=== PATIENT | male | born 1960 | race African-American/Black ===

== ENCOUNTER 2016-07-29 14:48 | Inpatient (IN) | payer OTHER, MEDICAID ==
[~2016-07-29] VITALS: Ht 182.9 cm; Wt 97.5 kg
[~2016-07-29 14:48] MED LIST: AMLO-512 PO; PALI3 PO
[2016-07-29] MEDS ORDERED: FLUP10 PO (15:03)
[2016-07-29 15:37] LABS: BASOPHILS % (AUTO) 0.4 % (0.0-2.0); EOSINOPHILS % (AUTO) 3.6 % (1.0-6.0); HEMATOCRIT 38.2 % (41-53); HEMOGLOBIN 12.3 g/dL (13.5-17.5); LYMPHOCYTES # (AUTO) 0.9 K/uL (1.0-4.8); LYMPHOCYTES % (AUTO) 18.7 % (22.0-44.0); MEAN CORPUSCULAR HEMOGLOBIN 27.6 pg (26.0-34.0); MEAN CORPUSCULAR HGB CONC 32.3 G/dL (31.0-37.0); MEAN CORPUSCULAR VOLUME 85 fL (80-100); MONOCYTES # (AUTO) 0.4 K/uL (0.1-1.0); MONOCYTES % (AUTO) 8.5 % (2.0-9.0); NEUTROPHILS # (AUTO) 3.4 K/uL (1.8-7.7); NEUTROPHILS % (AUTO) 68.8 % (40.0-70.0); PLATELET COUNT (AUTO) 296 K/uL (150-450); RED BLOOD CELL COUNT(AUTO) 4.47 MIL/uL (4.50-5.90); RED CELL DISTRIBUTION WIDTH 14.5 % (11.5-14.5)
[2016-07-29] MEDS ORDERED: DiphenhydrAMINE HCL 50 MG/ML VIAL IM ONE (15:45)
[2016-07-29] MEDS ORDERED: LORazepam 2 MG/ML VIAL IM ONE (15:45)
[2016-07-29] MEDS ORDERED: HALOPERIDOL LACTATE 5 MG/ML VIAL IM ONE (15:45)
[2016-07-29 15:48] LABS: ANION GAP 12 mmol/L (8-16); CALCIUM, TOTAL 8.9 mg/dL (8.8-10.5); CARBON DIOXIDE 28 mmol/L (22-29); CHLORIDE 106 mmol/L (98-107); CREATININE 1.19 mg/dL (0.60-1.30); GLOMERULAR FILTR. RATE CALC > 60 mL/min (>60); POTASSIUM 3.2 mmol/L (3.5-5.1); SODIUM SERUM 146 mmol/L (136-145); UREA NITROGEN, BLOOD 14 mg/dL (7-18)
[2016-07-29 15:54] LABS: ALANINE AMINOTRANSFERASE 27 U/L (12-78); ALBUMIN 3.7 g/dL (3.4-5.0); ASPARTATE AMINOTRANSFERASE 26 U/L (15-37); BILIRUBIN,TOTAL 0.4 mg/dL (0.1-1.0); TOTAL PROTEIN, SERUM 7.1 g/dL (6.4-8.2)
[2016-07-29] MEDS ORDERED: HALOPERIDOL 5 MG TABLET PO PRN (16:30)
[2016-07-29] MEDS ORDERED: ZOLPIDEM TARTRATE 10 MG TABLET PO PRN (16:30)
[2016-07-29] MEDS ORDERED: POTASSIUM CHLORIDE 20 MEQ ER TABLET PO ONE (20:15)
[2016-07-30] MEDS: PALIPERIDONE 3 MG ER TABLET PO SCH ×2 (08:14→21:00)
[2016-07-30] MEDS: AmLODIPine BESYLATE 10 MG TABLET PO SCH (08:15)
[2016-07-31] MEDS: PALIPERIDONE 3 MG ER TABLET PO SCH ×2 (08:03→20:28)
[2016-07-31] MEDS: AmLODIPine BESYLATE 10 MG TABLET PO SCH (08:04)
[2016-08-01] MEDS: AmLODIPine BESYLATE 10 MG TABLET PO SCH (08:21)
[2016-08-01] MEDS: PALIPERIDONE 3 MG ER TABLET PO SCH ×2 (08:21→20:26)
[2016-08-02] MEDS: AmLODIPine BESYLATE 10 MG TABLET PO SCH (09:00)
[2016-08-02] MEDS: PALIPERIDONE 3 MG ER TABLET PO SCH ×2 (09:00→20:43)
[2016-08-03] MEDS: PALIPERIDONE 3 MG ER TABLET PO SCH ×2 (08:03→20:45)
[2016-08-03] MEDS: AmLODIPine BESYLATE 10 MG TABLET PO SCH (08:03)
[2016-08-04] MEDS: PALIPERIDONE 3 MG ER TABLET PO SCH ×2 (08:33→20:18)
[2016-08-04] MEDS: AmLODIPine BESYLATE 10 MG TABLET PO SCH (08:53)
[2016-08-04] MEDS ORDERED: HALOPERIDOL LACTATE 5 MG/ML VIAL ONE (09:35)
[2016-08-04] MEDS: HALOPERIDOL LACTATE 5 MG/ML VIAL IM PRN ×2 (09:43→20:18)
[2016-08-05] MEDS: AmLODIPine BESYLATE 10 MG TABLET PO SCH (08:59)
[2016-08-05] MEDS: PALIPERIDONE 3 MG ER TABLET PO SCH ×2 (08:59→20:46)
[2016-08-05] MEDS: HALOPERIDOL LACTATE 5 MG/ML VIAL IM PRN ×2 (09:00→21:02)
[2016-08-06 06:30] VITALS: BP 144/93
[2016-08-06] MEDS: PALIPERIDONE 3 MG ER TABLET PO SCH ×2 (09:00→20:50)
[2016-08-06] MEDS: AmLODIPine BESYLATE 10 MG TABLET PO SCH (09:00)
[2016-08-06] MEDS: HALOPERIDOL LACTATE 5 MG/ML VIAL IM PRN (09:15)
[2016-08-06 16:00] VITALS: BP 153/89
[2016-08-07] MEDS: PALIPERIDONE 3 MG ER TABLET PO SCH ×2 (09:09→20:12)
[2016-08-07] MEDS: AmLODIPine BESYLATE 10 MG TABLET PO SCH (09:09)
[2016-08-07 16:00] VITALS: BP 114/64
[2016-08-08] MEDS: AmLODIPine BESYLATE 10 MG TABLET PO SCH (08:28)
[2016-08-08] MEDS: PALIPERIDONE 3 MG ER TABLET PO SCH ×2 (08:29→20:13)
[2016-08-09 08:34] VITALS: BP 129/67
[2016-08-09] MEDS: PALIPERIDONE 3 MG ER TABLET PO SCH (09:01)
[2016-08-09] MEDS: AmLODIPine BESYLATE 10 MG TABLET PO SCH (09:01)
[2016-08-09 16:00] VITALS: BP 118/68
[2016-08-09] MEDS: PALIPERIDONE 6 MG ER TABLET PO SCH (20:39)
[2016-08-10 07:05] VITALS: BP 121/75
[2016-08-10 08:50] VITALS: BP 117/64
[2016-08-10] MEDS: AmLODIPine BESYLATE 10 MG TABLET PO SCH (09:21)
[2016-08-10] MEDS: PALIPERIDONE 6 MG ER TABLET PO SCH ×2 (09:21→20:32)
[2016-08-10 16:06] VITALS: BP 119/69
[2016-08-10] MEDS: LORazepam 2 MG TABLET PO PRN (20:32)
[2016-08-11 06:45] VITALS: BP 136/83
[2016-08-11 08:00] VITALS: BP 115/69
[2016-08-11] MEDS: PALIPERIDONE 6 MG ER TABLET PO SCH ×2 (08:40→20:31)
[2016-08-11] MEDS: AmLODIPine BESYLATE 10 MG TABLET PO SCH (08:40)
[2016-08-11 16:05] VITALS: BP 127/71
[2016-08-11] MEDS: LORazepam 2 MG TABLET PO PRN (20:31)
[2016-08-12 06:54] VITALS: BP 124/78
[2016-08-12 08:24] VITALS: BP 122/67
[2016-08-12] MEDS: AmLODIPine BESYLATE 10 MG TABLET PO SCH (08:27)
[2016-08-12] MEDS: PALIPERIDONE 6 MG ER TABLET PO SCH ×2 (08:28→21:10)
[2016-08-12] MEDS: LORazepam 2 MG TABLET PO PRN (08:28)
[2016-08-13 05:09] VITALS: BP 123/79
[2016-08-13 08:28] VITALS: BP 123/67
[2016-08-13] MEDS: PALIPERIDONE 6 MG ER TABLET PO SCH ×2 (09:27→20:57)
[2016-08-13] MEDS: AmLODIPine BESYLATE 10 MG TABLET PO SCH (09:27)
[2016-08-13 16:00] VITALS: BP 128/69
[2016-08-14 08:25] VITALS: BP 113/64
[2016-08-14] MEDS: AmLODIPine BESYLATE 10 MG TABLET PO SCH (09:16)
[2016-08-14] MEDS: PALIPERIDONE 6 MG ER TABLET PO SCH ×2 (09:16→20:19)
[2016-08-14 16:00] VITALS: BP 120/70
[2016-08-14] MEDS: LORazepam 2 MG TABLET PO PRN (20:19)
[2016-08-15 06:15] VITALS: BP 140/97
[2016-08-15] MEDS: PALIPERIDONE 6 MG ER TABLET PO SCH ×2 (09:18→20:55)
[2016-08-15] MEDS: AmLODIPine BESYLATE 10 MG TABLET PO SCH (09:19)
[2016-08-15] MEDS: LORazepam 2 MG TABLET PO PRN (09:19)
[2016-08-15] MEDS ORDERED: PALIPERIDONE PALMITATE 234 MG/1.5 ML SYRINGE IM ONE (16:00)
[2016-08-15 16:10] VITALS: BP 130/79
[2016-08-16] MEDS: AmLODIPine BESYLATE 10 MG TABLET PO SCH (08:19)
[2016-08-16] MEDS: PALIPERIDONE 6 MG ER TABLET PO SCH (08:20)
[2016-08-16 16:05] VITALS: BP 134/76
[2016-08-16] MEDS ORDERED: AMLO-512 PO (16:54)
[2016-08-16] MEDS ORDERED: PALI234D IM (16:54)
[2016-08-16] MEDS ORDERED: PALI6 PO (16:54)
[2016-08-20] MEDS ORDERED: PALIPERIDONE PALMITATE 156 MG/ML SYRINGE IM ONE (09:00)
[2016-09-17] MEDS ORDERED: PALIPERIDONE PALMITATE 234 MG/1.5 ML SYRINGE IM SCH (09:00)
== END 2016-08-16 20:30 | disposition home or self-care (01) | DRG 885 ==
LOC: EMS 14:50 → B3A 16:19
DX: F20.0 Paranoid schizophrenia (principal); E87.1 Hypo-osmolality and hyponatremia; F17.210 Nicotine dependence, cigarettes, uncomplicated; E66.9 Obesity, unspecified; F99 Mental disorder, not otherwise specified; D64.9 Anemia, unspecified; E87.6 Hypokalemia; I10 Essential (primary) hypertension; Z78.1 Physical restraint status; Z88.8 Allergy status to other drugs, medicaments and biological substances; Z68.29 Body mass index [BMI] 29.0-29.9, adult; Z71.6 Tobacco abuse counseling
CPT/HCPCS: 96372; 99285; G0480; J1200; J1630; J2060

== ENCOUNTER 2017-03-31 10:22 | Inpatient (IN) | payer MEDICARE, MEDICAID ==
[~2017-03-31] VITALS: Ht 185.4 cm; Wt 81.8 kg
[~2017-03-31 10:22] MED LIST changes: +PALI234D IM; -PALI3 PO; +PALI6 PO
[2017-03-31 11:10] LABS: BASOPHILS # (AUTO) 0.02 K/uL (0.00-0.20); BASOPHILS % (AUTO) 0.3 % (0.0-2.0); EOSINOPHILS # (AUTO) 0.14 K/uL (0.00-0.70); EOSINOPHILS % (AUTO) 2.58 % (1.0-6.0); HEMATOCRIT 37.4 % (41-53); HEMOGLOBIN 12.2 g/dL (13.5-17.5); LYMPHOCYTES # (AUTO) 1.3 K/uL (1.0-4.8); LYMPHOCYTES % (AUTO) 23.9 % (22.0-44.0); MEAN CORPUSCULAR HEMOGLOBIN 28.1 pg (26.0-34.0); MEAN CORPUSCULAR HGB CONC 32.5 G/dL (31.0-37.0); MEAN CORPUSCULAR VOLUME 87 fL (80-100); MONOCYTES # (AUTO) 0.4 K/uL (0.1-1.0); MONOCYTES % (AUTO) 7.9 % (2.0-9.0); NEUTROPHILS # (AUTO) 3.5 K/uL (1.8-7.7); NEUTROPHILS % (AUTO) 65.3 % (40.0-70.0); RED BLOOD CELL COUNT(AUTO) 4.33 MIL/uL (4.50-5.90)
[2017-03-31 11:23] LABS: WHITE BLOOD COUNT (AUTO) 6.2 K/uL (4.5-11.0)
[2017-03-31 11:24] LABS: ANION GAP 13 mmol/L (8-16); CALCIUM, TOTAL 8.7 mg/dL (8.8-10.5); CARBON DIOXIDE 24 mmol/L (22-29); CHLORIDE 100 mmol/L (98-107); CREATININE 1.23 mg/dL (0.60-1.30); GLOMERULAR FILTR. RATE CALC > 60 mL/min (>60); POTASSIUM 3.1 mmol/L (3.5-5.1); SODIUM SERUM 137 mmol/L (136-145); UREA NITROGEN, BLOOD 9 mg/dL (7-18)
[2017-03-31 11:30] LABS: ALANINE AMINOTRANSFERASE 23 U/L (12-78); ALBUMIN 3.9 g/dL (3.4-5.0); ASPARTATE AMINOTRANSFERASE 24 U/L (15-37); BILIRUBIN,TOTAL 0.5 mg/dL (0.1-1.0); TOTAL PROTEIN, SERUM 7.1 g/dL (6.4-8.2)
[2017-03-31] MEDS ORDERED: HALOPERIDOL LACTATE 5 MG/ML VIAL IM ONE (11:30)
[2017-03-31] MEDS ORDERED: BENZTROPINE MESYLATE 1 MG/ML 2 ML VIAL IM ONE (11:30)
[2017-03-31] MEDS ORDERED: LORazepam 2 MG/ML VIAL IM ONE (11:30)
[2017-03-31 11:56] LABS: PLATELET COUNT (AUTO) 209 K/uL (150-450)
[2017-03-31] MEDS ORDERED: HALOPERIDOL 5 MG TABLET PO PRN (12:00)
[2017-03-31] MEDS ORDERED: POTASSIUM CHLORIDE 20 MEQ ER TABLET PO ONE ×2 (12:45→19:15)
[2017-03-31 16:34] VITALS: BP 135/89
[2017-03-31 16:35] VITALS: BP 135/89
[2017-03-31] MEDS: PALIPERIDONE 3 MG ER TABLET PO SCH (20:30)
[2017-04-01 06:00] VITALS: BP 127/71
[2017-04-01] MEDS: PALIPERIDONE 3 MG ER TABLET PO SCH ×2 (08:19→20:19)
[2017-04-01] MEDS ORDERED: IBUPROFEN 400 MG TABLET PO PRN (21:30)
[2017-04-01] MEDS ORDERED: ACETAMINOPHEN 325 MG TABLET PO PRN (21:30)
[2017-04-02] MEDS: PALIPERIDONE 3 MG ER TABLET PO SCH ×2 (08:43→20:54)
[2017-04-02] MEDS: AmLODIPine BESYLATE 10 MG TABLET PO SCH (08:43)
[2017-04-02] MEDS: ZOLPIDEM TARTRATE 10 MG TABLET PO PRN (20:54)
[2017-04-03] MEDS: AmLODIPine BESYLATE 10 MG TABLET PO SCH (08:57)
[2017-04-03] MEDS: PALIPERIDONE 3 MG ER TABLET PO SCH ×2 (08:57→21:00)
[2017-04-04] MEDS: PALIPERIDONE 3 MG ER TABLET PO SCH ×2 (08:28→20:31)
[2017-04-04] MEDS: AmLODIPine BESYLATE 10 MG TABLET PO SCH (08:28)
[2017-04-04] MEDS: LORazepam 2 MG TABLET PO PRN (20:31)
[2017-04-04] MEDS: ZOLPIDEM TARTRATE 10 MG TABLET PO PRN (20:31)
[2017-04-05] MEDS: AmLODIPine BESYLATE 10 MG TABLET PO SCH (09:00)
[2017-04-05] MEDS: PALIPERIDONE 3 MG ER TABLET PO SCH ×2 (09:00→20:45)
[2017-04-05] MEDS: ZOLPIDEM TARTRATE 10 MG TABLET PO PRN (20:45)
[2017-04-05] MEDS: LORazepam 2 MG TABLET PO PRN (20:46)
[2017-04-06] MEDS: AmLODIPine BESYLATE 10 MG TABLET PO SCH (09:00)
[2017-04-06] MEDS: PALIPERIDONE 3 MG ER TABLET PO SCH ×2 (09:47→20:35)
[2017-04-06] MEDS: ZOLPIDEM TARTRATE 10 MG TABLET PO PRN (20:35)
[2017-04-06] MEDS: LORazepam 2 MG TABLET PO PRN (20:35)
[2017-04-07 08:09] VITALS: BP 126/73
[2017-04-07] MEDS: AmLODIPine BESYLATE 10 MG TABLET PO SCH (09:57)
[2017-04-07] MEDS: PALIPERIDONE 3 MG ER TABLET PO SCH ×2 (09:57→20:08)
[2017-04-08] MEDS: AmLODIPine BESYLATE 10 MG TABLET PO SCH (08:20)
[2017-04-08] MEDS: PALIPERIDONE 3 MG ER TABLET PO SCH ×2 (08:20→21:01)
[2017-04-09] MEDS: PALIPERIDONE 3 MG ER TABLET PO SCH ×3 (08:52→20:45)
[2017-04-09] MEDS: AmLODIPine BESYLATE 10 MG TABLET PO SCH ×2 (08:52→09:00)
[2017-04-09] MEDS: HALOPERIDOL LACTATE 5 MG/ML VIAL IM PRN ×2 (11:26→20:45)
[2017-04-09] MEDS: FERROUS SULFATE 325 MG EC TABLET PO SCH (17:00)
[2017-04-10] MEDS: FERROUS SULFATE 325 MG EC TABLET PO SCH ×3 (06:52→17:06)
[2017-04-10] MEDS: AmLODIPine BESYLATE 10 MG TABLET PO SCH (08:51)
[2017-04-10] MEDS: PALIPERIDONE 3 MG ER TABLET PO SCH ×2 (08:51→20:46)
[2017-04-11] MEDS: FERROUS SULFATE 325 MG EC TABLET PO SCH ×3 (06:53→17:06)
[2017-04-11 08:19] VITALS: BP 135/74
[2017-04-11] MEDS: AmLODIPine BESYLATE 10 MG TABLET PO SCH (09:25)
[2017-04-11] MEDS: PALIPERIDONE 3 MG ER TABLET PO SCH ×2 (09:25→20:35)
[2017-04-12] MEDS: FERROUS SULFATE 325 MG EC TABLET PO SCH ×3 (07:14→17:02)
[2017-04-12] MEDS: AmLODIPine BESYLATE 10 MG TABLET PO SCH (08:36)
[2017-04-12] MEDS: PALIPERIDONE 3 MG ER TABLET PO SCH ×2 (08:36→20:36)
[2017-04-12] MEDS ORDERED: PALIPERIDONE PALMITATE 234 MG/1.5 ML SYRINGE IM ONE (08:45)
[2017-04-12 16:24] VITALS: BP 116/76
[2017-04-12] MEDS: ZOLPIDEM TARTRATE 10 MG TABLET PO PRN (20:36)
[2017-04-12 20:55] VITALS: BP 56/23
[2017-04-12 21:10] VITALS: BP 99/59
[2017-04-12 21:27] LABS: GLUCOSE,POINT OF CARE 126 MG/DL (70-110)
[2017-04-12] MEDS ORDERED: PALI3 PO (22:03)
[2017-04-12] MEDS ORDERED: AMLO-512 PO (22:03)
[2017-04-12] MEDS ORDERED: FERR-89 PO (22:03)
[2017-04-13 01:13] VITALS: BP 129/72
[2017-04-13 02:07] VITALS: BP 126/76
[2017-04-13] MEDS: FERROUS SULFATE 325 MG EC TABLET PO SCH ×3 (06:17→16:30)
[2017-04-13 08:00] VITALS: BP 109/68
[2017-04-13] MEDS: AmLODIPine BESYLATE 10 MG TABLET PO SCH (09:01)
[2017-04-13] MEDS: PALIPERIDONE 3 MG ER TABLET PO SCH ×2 (09:01→20:30)
[2017-04-13 16:00] VITALS: BP 108/65
[2017-04-14] MEDS: FERROUS SULFATE 325 MG EC TABLET PO SCH ×3 (06:29→16:59)
[2017-04-14 08:05] VITALS: BP 110/64
[2017-04-14] MEDS: PALIPERIDONE 3 MG ER TABLET PO SCH ×2 (08:48→20:37)
[2017-04-14] MEDS: AmLODIPine BESYLATE 10 MG TABLET PO SCH (08:48)
[2017-04-15] MEDS: FERROUS SULFATE 325 MG EC TABLET PO SCH ×3 (06:25→16:33)
[2017-04-15 08:27] VITALS: BP 111/59
[2017-04-15] MEDS: PALIPERIDONE 3 MG ER TABLET PO SCH ×2 (08:41→20:50)
[2017-04-15] MEDS: AmLODIPine BESYLATE 10 MG TABLET PO SCH (08:42)
[2017-04-16] MEDS: FERROUS SULFATE 325 MG EC TABLET PO SCH ×3 (06:26→17:07)
[2017-04-16 08:02] VITALS: BP 130/74
[2017-04-16 08:37] LABS: HEMOGLOBIN A1C 5.3 % (4.5-6.2)
[2017-04-16] MEDS: PALIPERIDONE 3 MG ER TABLET PO SCH ×2 (08:44→20:37)
[2017-04-16] MEDS: AmLODIPine BESYLATE 10 MG TABLET PO SCH (08:44)
[2017-04-16] MEDS ORDERED: PALIPERIDONE PALMITATE 156 MG/ML SYRINGE IM ONE (09:00)
[2017-04-16 09:04] LABS: ANION GAP 4 mmol/L (8-16); CALCIUM, TOTAL 8.8 mg/dL (8.8-10.5); CARBON DIOXIDE 33 mmol/L (22-29); CHLORIDE 106 mmol/L (98-107); CREATININE 0.81 mg/dL (0.60-1.30); GLOMERULAR FILTR. RATE CALC > 60 mL/min (>60); POTASSIUM 4.2 mmol/L (3.5-5.1); SODIUM SERUM 143 mmol/L (136-145); THYROID STIMULATING HORMONE 0.73 uIU/mL (0.36-3.74); UREA NITROGEN, BLOOD 14 mg/dL (7-18)
[2017-04-17] MEDS: FERROUS SULFATE 325 MG EC TABLET PO SCH ×3 (06:27→16:47)
[2017-04-17] MEDS: AmLODIPine BESYLATE 10 MG TABLET PO SCH (09:00)
[2017-04-17] MEDS: PALIPERIDONE 3 MG ER TABLET PO SCH ×2 (09:37→20:21)
[2017-04-17 09:41] VITALS: BP 99/73
[2017-04-18] MEDS: FERROUS SULFATE 325 MG EC TABLET PO SCH ×2 (06:27→13:27)
[2017-04-18] MEDS ORDERED: PALI234D IM (08:35)
[2017-04-18] MEDS: AmLODIPine BESYLATE 10 MG TABLET PO SCH (08:35)
[2017-04-18] MEDS: PALIPERIDONE 3 MG ER TABLET PO SCH (08:35)
[2017-05-14] MEDS ORDERED: PALIPERIDONE PALMITATE 234 MG/1.5 ML SYRINGE IM SCH (09:00)
== END 2017-04-18 17:35 | disposition home or self-care (01) | DRG 885 ==
LOC: EMS 10:27 → B3A 12:40
DX: F20.0 Paranoid schizophrenia (principal); Z78.1 Physical restraint status; D64.9 Anemia, unspecified; E87.6 Hypokalemia; F94.0 Selective mutism; I10 Essential (primary) hypertension; F17.210 Nicotine dependence, cigarettes, uncomplicated; F41.9 Anxiety disorder, unspecified; Z91.14 Patient's other noncompliance with medication regimen; Z91.19 Patient's noncompliance with other medical treatment and regimen; Z88.8 Allergy status to other drugs, medicaments and biological substances
CPT/HCPCS: 82962; 83036; 84443; 96372; 99291; G0480; J0515; J1630; J2060

== ENCOUNTER 2017-04-12 21:47 | Emergency (ER) | payer MEDICARE, OTHER ==
[~2017-04-12] VITALS: Ht 188 cm; Wt 72.0 kg
[2017-04-12] MEDS ORDERED: AMLO-512 PO (22:03)
[2017-04-12] MEDS ORDERED: FERR-89 PO (22:03)
[2017-04-12] MEDS ORDERED: PALI3 PO (22:03)
[2017-04-12 22:24] LABS: BASOPHILS % (AUTO) 0.2 % (0.0-2.0); EOSINOPHILS % (AUTO) 2.4 % (1.0-6.0); HEMOGLOBIN 12.1 g/dL (13.5-17.5); LYMPHOCYTES # (AUTO) 1.1 K/uL (1.0-4.8); LYMPHOCYTES % (AUTO) 13.4 % (22.0-44.0); MEAN CORPUSCULAR HEMOGLOBIN 28.8 pg (26.0-34.0); MEAN CORPUSCULAR HGB CONC 33.5 G/dL (31.0-37.0); MEAN CORPUSCULAR VOLUME 86 fL (80-100); MONOCYTES # (AUTO) 0.7 K/uL (0.1-1.0); NEUTROPHILS # (AUTO) 6.1 K/uL (1.8-7.7); PLATELET COUNT (AUTO) 267 K/uL (150-450); RED BLOOD CELL COUNT(AUTO) 4.19 MIL/uL (4.50-5.90); RED CELL DISTRIBUTION WIDTH 15.1 % (11.5-14.5); WHITE BLOOD COUNT (AUTO) 8.1 K/uL (4.5-11.0)
[2017-04-12 22:42] LABS: ALANINE AMINOTRANSFERASE 29 U/L (12-78); ALBUMIN 3.4 g/dL (3.4-5.0); ASPARTATE AMINOTRANSFERASE 20 U/L (15-37); BILIRUBIN,TOTAL 0.2 mg/dL (0.1-1.0); CALCIUM, TOTAL 8.6 mg/dL (8.8-10.5); CARBON DIOXIDE 31 mmol/L (22-29); CREATININE 1.01 mg/dL (0.60-1.30); GLOMERULAR FILTR. RATE CALC > 60 mL/min (>60); TOTAL PROTEIN, SERUM 6.5 g/dL (6.4-8.2); UREA NITROGEN, BLOOD 19 mg/dL (7-18)
[2017-04-12 22:49] LABS: ANION GAP 7 mmol/L (8-16); CHLORIDE 101 mmol/L (98-107); POTASSIUM 3.8 mmol/L (3.5-5.1); SODIUM SERUM 139 mmol/L (136-145)
[2017-04-13 00:12] VITALS: BP 132/64
== END 2017-04-13 00:42 | disposition home or self-care (01) ==
LOC: EMS 21:50
DX: S09.90XA Unspecified injury of head, initial encounter (principal); R55 Syncope and collapse; F20.9 Schizophrenia, unspecified; F17.210 Nicotine dependence, cigarettes, uncomplicated; Z88.8 Allergy status to other drugs, medicaments and biological substances; Z79.899 Other long term (current) drug therapy; W18.09XA Striking against other object with subsequent fall, initial encounter; Y93.89 Activity, other specified; Y92.89 Other specified places as the place of occurrence of the external cause; Y99.8 Other external cause status
CPT/HCPCS: 70450; 72125; 93005; 99285

== ENCOUNTER 2017-04-29 10:56 | Emergency (ER) | payer MEDICARE, OTHER ==
[~2017-04-29] VITALS: Ht 177.8 cm; Wt 84.1 kg
[~2017-04-29 10:56] MED LIST changes: +FERR-89 PO; +PALI3 PO; -PALI6 PO
[2017-04-29] MEDS ORDERED: ACETAMINOPHEN 500 MG TABLET PO ONE (11:30)
[2017-04-29 11:49] VITALS: BP 123/67
== END 2017-04-29 12:00 | disposition home or self-care (01) ==
LOC: EMS 11:02
DX: S09.90XA Unspecified injury of head, initial encounter (principal); M79.604 Pain in right leg; R07.81 Pleurodynia; F17.210 Nicotine dependence, cigarettes, uncomplicated; W19.XXXA Unspecified fall, initial encounter; Y93.89 Activity, other specified; Y92.89 Other specified places as the place of occurrence of the external cause; Y99.8 Other external cause status
CPT/HCPCS: 99283; 99406

== ENCOUNTER 2017-09-07 14:09 | Inpatient (IN) | payer MEDICARE, MEDICAID ==
[~2017-09-07] VITALS: Ht 182.9 cm; Wt 79.5 kg
[2017-09-07 15:42] LABS: BASOPHILS % (AUTO) 0.7 % (0.0-2.0); HEMATOCRIT 36.7 % (41-53); HEMOGLOBIN 12.3 g/dL (13.5-17.5); LYMPHOCYTES # (AUTO) 0.7 K/uL (1.0-4.8); MEAN CORPUSCULAR HEMOGLOBIN 28.8 pg (26.0-34.0); MEAN CORPUSCULAR HGB CONC 33.5 G/dL (31.0-37.0); MEAN CORPUSCULAR VOLUME 86 fL (80-100); MONOCYTES # (AUTO) 0.5 K/uL (0.1-1.0); MONOCYTES % (AUTO) 9.4 % (2.0-9.0); NEUTROPHILS # (AUTO) 4.2 K/uL (1.8-7.7); NEUTROPHILS % (AUTO) 75.9 % (40.0-70.0); RED BLOOD CELL COUNT(AUTO) 4.26 MIL/uL (4.50-5.90); RED CELL DISTRIBUTION WIDTH 14.1 % (11.5-14.5)
[2017-09-07 15:51] LABS: ANION GAP 5 mmol/L (8-16); CALCIUM, TOTAL 8.5 mg/dL (8.8-10.5); CARBON DIOXIDE 32 mmol/L (22-29); CHLORIDE 105 mmol/L (98-107); CREATININE 0.98 mg/dL (0.60-1.30); GLOMERULAR FILTR. RATE CALC > 60 mL/min (>60); GLUCOSE,RANDOM 118 mg/dL (70-110); POTASSIUM 3.6 mmol/L (3.5-5.1); SODIUM SERUM 142 mmol/L (136-145); UREA NITROGEN, BLOOD 10 mg/dL (7-18)
[2017-09-07 15:57] LABS: ALANINE AMINOTRANSFERASE 28 U/L (12-78); ALBUMIN 3.8 g/dL (3.4-5.0); ALKALINE PHOSPHATASE 73 U/L (46-116); ASPARTATE AMINOTRANSFERASE 23 U/L (15-37); BILIRUBIN,TOTAL 0.3 mg/dL (0.1-1.0); TOTAL PROTEIN, SERUM 6.9 g/dL (6.4-8.2)
[2017-09-07 16:17] LABS: PLATELET COUNT (AUTO) 228 K/uL (150-450)
[2017-09-07 16:18] LABS: PLATELET MORPHOLOGY COMMENT LARGE PLTS PRESENT
[2017-09-07] MEDS ORDERED: LORazepam 2 MG/ML VIAL IM ONE (17:00)
[2017-09-07] MEDS ORDERED: HALOPERIDOL LACTATE 5 MG/ML VIAL IM ONE (17:00)
[2017-09-07] MEDS ORDERED: DiphenhydrAMINE HCL 50 MG/ML VIAL IM ONE (17:00)
[2017-09-07] MEDS ORDERED: HALOPERIDOL 5 MG TABLET PO PRN (17:45)
[2017-09-07] MEDS ORDERED: LORazepam 2 MG TABLET PO PRN (17:45)
[2017-09-07] MEDS ORDERED: ZOLPIDEM TARTRATE 10 MG TABLET PO PRN (17:45)
[2017-09-07] MEDS ORDERED: LORazepam 1 MG TABLET PO ONE (18:00)
[2017-09-07] MEDS ORDERED: HALOPERIDOL 5 MG TABLET PO ONE (18:00)
[2017-09-07 20:04] VITALS: BP 145/91
[2017-09-08] MEDS ORDERED: PNEUMOCOCCAL VACCINE POLYVALENT 0.5 ML VIAL [PPSV23] IM ONE (01:30)
[2017-09-08 06:43] LABS: BASOPHILS % (AUTO) 0.8 % (0.0-2.0); EOSINOPHILS % (AUTO) 1.6 % (1.0-6.0); HEMATOCRIT 36.4 % (41-53); HEMOGLOBIN 12.5 g/dL (13.5-17.5); LYMPHOCYTES % (AUTO) 22.3 % (22.0-44.0); MEAN CORPUSCULAR HEMOGLOBIN 29.4 pg (26.0-34.0); MEAN CORPUSCULAR HGB CONC 34.2 G/dL (31.0-37.0); MEAN CORPUSCULAR VOLUME 86 fL (80-100); MONOCYTES # (AUTO) 0.4 K/uL (0.1-1.0); MONOCYTES % (AUTO) 9.5 % (2.0-9.0); NEUTROPHILS % (AUTO) 65.8 % (40.0-70.0); PLATELET COUNT (AUTO) 212 K/uL (150-450); RED BLOOD CELL COUNT(AUTO) 4.23 MIL/uL (4.50-5.90); RED CELL DISTRIBUTION WIDTH 13.9 % (11.5-14.5)
[2017-09-08 08:03] LABS: ALANINE AMINOTRANSFERASE 26 U/L (12-78); ALBUMIN 3.8 g/dL (3.4-5.0); ALKALINE PHOSPHATASE 61 U/L (46-116); ANION GAP 5 mmol/L (8-16); ASPARTATE AMINOTRANSFERASE 23 U/L (15-37); BILIRUBIN,TOTAL 0.6 mg/dL (0.1-1.0); CALCIUM, TOTAL 8.8 mg/dL (8.8-10.5); CARBON DIOXIDE 31 mmol/L (22-29); CHLORIDE 105 mmol/L (98-107); CREATININE 0.93 mg/dL (0.60-1.30); FREE T4 (FREE THYROXINE) 0.96 ng/dL (0.76-1.46); GLOMERULAR FILTR. RATE CALC > 60 mL/min (>60); GLUCOSE,RANDOM 93 mg/dL (70-110); POTASSIUM 3.7 mmol/L (3.5-5.1); SODIUM SERUM 141 mmol/L (136-145); THYROID STIMULATING HORMONE 1.43 uIU/mL (0.36-3.74); TOTAL PROTEIN, SERUM 6.9 g/dL (6.4-8.2); UREA NITROGEN, BLOOD 9 mg/dL (7-18)
[2017-09-08 16:30] VITALS: BP 120/69
[2017-09-08] MEDS ORDERED: CloNIDine HCL 0.1 MG TABLET PO PRN (21:15)
[2017-09-08] MEDS ORDERED: ACETAMINOPHEN 325 MG TABLET PO PRN (21:15)
[2017-09-08] MEDS ORDERED: IBUPROFEN 400 MG TABLET PO PRN (21:15)
[2017-09-09] MEDS: FERROUS SULFATE 325 MG EC TABLET PO SCH ×4 (07:06→20:47)
[2017-09-09] MEDS: PALIPERIDONE 6 MG ER TABLET PO SCH (09:00)
[2017-09-09] MEDS: AmLODIPine BESYLATE 10 MG TABLET PO SCH (09:00)
[2017-09-10] MEDS: FERROUS SULFATE 325 MG EC TABLET PO SCH ×4 (06:54→20:18)
[2017-09-10] MEDS: AmLODIPine BESYLATE 10 MG TABLET PO SCH (09:00)
[2017-09-10] MEDS: PALIPERIDONE 6 MG ER TABLET PO SCH (09:00)
[2017-09-10 16:41] VITALS: BP 115/71
[2017-09-11] MEDS: FERROUS SULFATE 325 MG EC TABLET PO SCH ×4 (06:51→20:25)
[2017-09-11] MEDS: PALIPERIDONE 6 MG ER TABLET PO SCH (09:00)
[2017-09-11] MEDS: AmLODIPine BESYLATE 10 MG TABLET PO SCH (09:00)
[2017-09-11 09:29] VITALS: BP 136/84
[2017-09-12] MEDS: FERROUS SULFATE 325 MG EC TABLET PO SCH ×4 (07:01→20:21)
[2017-09-12] MEDS: AmLODIPine BESYLATE 10 MG TABLET PO SCH (08:59)
[2017-09-12] MEDS: PALIPERIDONE 6 MG ER TABLET PO SCH (08:59)
[2017-09-12 10:08] VITALS: BP 135/101
[2017-09-12] MEDS: RisperiDONE CONC 2 MG/2 ML SOLUTION ORAL.SYG PO SCH ×2 (11:45→20:43)
[2017-09-13] MEDS: FERROUS SULFATE 325 MG EC TABLET PO SCH ×4 (07:06→21:00)
[2017-09-13] MEDS: RisperiDONE CONC 2 MG/2 ML SOLUTION ORAL.SYG PO SCH ×2 (09:00→21:00)
[2017-09-13] MEDS: AmLODIPine BESYLATE 10 MG TABLET PO SCH (09:00)
[2017-09-14] MEDS: FERROUS SULFATE 325 MG EC TABLET PO SCH ×4 (07:19→21:06)
[2017-09-14] MEDS: RisperiDONE CONC 2 MG/2 ML SOLUTION ORAL.SYG PO SCH ×2 (09:03→21:06)
[2017-09-14] MEDS: AmLODIPine BESYLATE 10 MG TABLET PO SCH (09:04)
[2017-09-15] MEDS: FERROUS SULFATE 325 MG EC TABLET PO SCH ×4 (06:42→20:39)
[2017-09-15 08:00] VITALS: BP 146/83
[2017-09-15] MEDS: RisperiDONE CONC 2 MG/2 ML SOLUTION ORAL.SYG PO SCH ×2 (09:26→20:40)
[2017-09-15] MEDS: AmLODIPine BESYLATE 10 MG TABLET PO SCH (09:26)
[2017-09-16] MEDS: FERROUS SULFATE 325 MG EC TABLET PO SCH ×4 (06:50→20:00)
[2017-09-16] MEDS: AmLODIPine BESYLATE 10 MG TABLET PO SCH ×2 (08:54→08:58)
[2017-09-16] MEDS: RisperiDONE CONC 2 MG/2 ML SOLUTION ORAL.SYG PO SCH ×2 (08:54→20:00)
[2017-09-16 17:32] VITALS: BP 144/69
[2017-09-17] MEDS: FERROUS SULFATE 325 MG EC TABLET PO SCH ×4 (06:51→20:44)
[2017-09-17 08:00] VITALS: BP 129/82
[2017-09-17] MEDS: LISINOPRIL 5 MG TABLET PO SCH (09:00)
[2017-09-17] MEDS: RisperiDONE CONC 2 MG/2 ML SOLUTION ORAL.SYG PO SCH ×2 (09:00→20:45)
[2017-09-17] MEDS: AmLODIPine BESYLATE 10 MG TABLET PO SCH (09:00)
[2017-09-18] MEDS: FERROUS SULFATE 325 MG EC TABLET PO SCH ×4 (07:03→20:55)
[2017-09-18] MEDS: RisperiDONE CONC 2 MG/2 ML SOLUTION ORAL.SYG PO SCH ×2 (09:00→20:56)
[2017-09-18] MEDS: AmLODIPine BESYLATE 10 MG TABLET PO SCH (09:00)
[2017-09-18] MEDS: LISINOPRIL 5 MG TABLET PO SCH (09:00)
[2017-09-19] MEDS: FERROUS SULFATE 325 MG EC TABLET PO SCH ×4 (06:55→20:41)
[2017-09-19] MEDS: AmLODIPine BESYLATE 10 MG TABLET PO SCH (08:12)
[2017-09-19] MEDS: LISINOPRIL 5 MG TABLET PO SCH (08:12)
[2017-09-19] MEDS: RisperiDONE CONC 2 MG/2 ML SOLUTION ORAL.SYG PO SCH ×2 (08:12→20:42)
[2017-09-20] MEDS: FERROUS SULFATE 325 MG EC TABLET PO SCH ×4 (07:02→20:36)
[2017-09-20] MEDS: AmLODIPine BESYLATE 10 MG TABLET PO SCH (09:00)
[2017-09-20] MEDS: LISINOPRIL 5 MG TABLET PO SCH (09:00)
[2017-09-20] MEDS: RisperiDONE CONC 2 MG/2 ML SOLUTION ORAL.SYG PO SCH ×2 (10:25→20:36)
[2017-09-21] MEDS: FERROUS SULFATE 325 MG EC TABLET PO SCH ×4 (07:01→22:17)
[2017-09-21] MEDS: RisperiDONE CONC 2 MG/2 ML SOLUTION ORAL.SYG PO SCH ×2 (08:34→22:16)
[2017-09-21] MEDS: LISINOPRIL 5 MG TABLET PO SCH (08:34)
[2017-09-21] MEDS: AmLODIPine BESYLATE 10 MG TABLET PO SCH (08:34)
[2017-09-22] MEDS: FERROUS SULFATE 325 MG EC TABLET PO SCH ×4 (06:34→22:06)
[2017-09-22] MEDS: AmLODIPine BESYLATE 10 MG TABLET PO SCH (09:00)
[2017-09-22] MEDS: LISINOPRIL 5 MG TABLET PO SCH (09:00)
[2017-09-22] MEDS: RisperiDONE CONC 2 MG/2 ML SOLUTION ORAL.SYG PO SCH ×2 (09:23→22:06)
[2017-09-23] MEDS: FERROUS SULFATE 325 MG EC TABLET PO SCH ×4 (06:58→20:44)
[2017-09-23 08:57] VITALS: BP 162/95
[2017-09-23] MEDS: LISINOPRIL 5 MG TABLET PO SCH (09:00)
[2017-09-23] MEDS: AmLODIPine BESYLATE 10 MG TABLET PO SCH (09:00)
[2017-09-23] MEDS: RisperiDONE CONC 2 MG/2 ML SOLUTION ORAL.SYG PO SCH ×2 (12:11→20:44)
[2017-09-24] MEDS: FERROUS SULFATE 325 MG EC TABLET PO SCH ×4 (06:59→20:32)
[2017-09-24] MEDS: LISINOPRIL 5 MG TABLET PO SCH (08:57)
[2017-09-24] MEDS: AmLODIPine BESYLATE 10 MG TABLET PO SCH (08:58)
[2017-09-24] MEDS: RisperiDONE CONC 3 MG/3 ML SOLUTION ORAL.SYG PO SCH ×2 (09:00→09:07)
[2017-09-24] MEDS: VALPROIC ACID 250 MG/5 ML SYRUP UDCUP PO SCH ×2 (09:02→20:36)
[2017-09-25] MEDS: FERROUS SULFATE 325 MG EC TABLET PO SCH ×4 (06:53→21:00)
[2017-09-25] MEDS: AmLODIPine BESYLATE 10 MG TABLET PO SCH (09:00)
[2017-09-25] MEDS: RisperiDONE CONC 3 MG/3 ML SOLUTION ORAL.SYG PO SCH ×2 (09:00→21:00)
[2017-09-25] MEDS: VALPROIC ACID 250 MG/5 ML SYRUP UDCUP PO SCH ×2 (09:00→21:00)
[2017-09-25] MEDS: LISINOPRIL 5 MG TABLET PO SCH (09:00)
[2017-09-26] MEDS: FERROUS SULFATE 325 MG EC TABLET PO SCH ×4 (06:53→21:27)
[2017-09-26 08:00] VITALS: BP 138/86
[2017-09-26] MEDS: LISINOPRIL 5 MG TABLET PO SCH (09:00)
[2017-09-26] MEDS: AmLODIPine BESYLATE 10 MG TABLET PO SCH (09:00)
[2017-09-26] MEDS: VALPROIC ACID 250 MG/5 ML SYRUP UDCUP PO SCH ×2 (09:37→21:27)
[2017-09-26] MEDS: RisperiDONE CONC 3 MG/3 ML SOLUTION ORAL.SYG PO SCH ×2 (09:38→21:27)
[2017-09-26 16:35] VITALS: BP 132/84
[2017-09-27] MEDS: FERROUS SULFATE 325 MG EC TABLET PO SCH ×4 (07:02→20:45)
[2017-09-27] MEDS: AmLODIPine BESYLATE 10 MG TABLET PO SCH (09:00)
[2017-09-27] MEDS: LISINOPRIL 5 MG TABLET PO SCH (09:00)
[2017-09-27 09:44] VITALS: BP 125/68
[2017-09-27] MEDS: VALPROIC ACID 250 MG/5 ML SYRUP UDCUP PO SCH ×2 (09:51→20:45)
[2017-09-27] MEDS: RisperiDONE CONC 3 MG/3 ML SOLUTION ORAL.SYG PO SCH ×2 (09:51→20:45)
[2017-09-28] MEDS: FERROUS SULFATE 325 MG EC TABLET PO SCH ×3 (06:56→17:30)
[2017-09-28] MEDS: VALPROIC ACID 250 MG/5 ML SYRUP UDCUP PO SCH (08:16)
[2017-09-28] MEDS: LISINOPRIL 5 MG TABLET PO SCH (08:17)
[2017-09-28] MEDS: AmLODIPine BESYLATE 10 MG TABLET PO SCH (08:17)
[2017-09-28] MEDS: RisperiDONE CONC 3 MG/3 ML SOLUTION ORAL.SYG PO SCH (08:17)
[2017-09-28 08:28] VITALS: BP 126/78
[2017-09-28] MEDS ORDERED: RISP3 PO (12:53)
[2017-09-28] MEDS ORDERED: DIVA500T35 PO (12:54)
[2017-09-28 16:00] VITALS: BP 122/75
== END 2017-09-28 17:45 | disposition left against medical advice (07) | DRG 885 ==
LOC: EMS 14:10 → 3EC 18:21
PROVIDERS: ADMIT Psychiatry & Neurology Child & Adolescent Psychiatry; ATTEND Psychiatry & Neurology Child & Adolescent Psychiatry
DX: F20.0 Paranoid schizophrenia (principal); Z78.1 Physical restraint status; D50.9 Iron deficiency anemia, unspecified; F17.210 Nicotine dependence, cigarettes, uncomplicated; F32.9 Major depressive disorder, single episode, unspecified; I10 Essential (primary) hypertension; Z91.19 Patient's noncompliance with other medical treatment and regimen; Z88.8 Allergy status to other drugs, medicaments and biological substances; Z79.899 Other long term (current) drug therapy
CPT/HCPCS: 84439; 84443; 87081; 99285; G0480